=== PATIENT | female | born 1985 | race Caucasian/White ===

== ENCOUNTER → 2018-08-11 17:27 | Outpatient (CLI) | payer MEDICARE, MEDICAID, SELFPAY ==
[2018-08-11 18:33] LABS: Basophils % 0.2 % (0.1-2.0); Eosinophils % 0.2 % (0.1-12.0); Hematocrit 39.6 % (37.0-47.0); Hemoglobin 13.4 g/dL (12.2-16.2); Lymphocytes # 2.6 K/mm3 (0.7-4.5); Mean Corpuscular HGB Conc 33.8 g/dL (31.8-35.4); Mean Corpuscular Hemoglobin 31.1 pg (27.0-31.2); Mean Corpuscular Volume 91.8 fl (81-99); Mean Platelet Volume 7.8 fl (7.4-10.4); Monocytes # 0.3 K/mm3 (0.1-1.0); Neutrophils # 7.2 K/mm3 (1.8-7.8); Neutrophils % 70.7 % (37.0-80.0); Platelet Count 288 K/mm3 (142-424); Red Blood Count 4.31 M/mm3 (4.20-5.40); Red Cell Distribution Width 13.3 % (11.5-17.5); White Blood Count 10.1 K/mm3 (4.8-10.8)
[2018-08-11 19:39] LABS: Alanine Aminotransferase 35 U/L (12-78); Albumin Level 4.5 gm/dL (3.4-5.0); Albumin/Globulin Ratio 1.2 (1.1-1.8); Alkaline Phosphatase 87 U/L (46-116); Anion Gap 16.6 mEq/L (5-15); Aspartate Amino Transferase 17 U/L (15-37); Bilirubin,Total 0.5 mg/dL (0.2-1.0); Blood Urea Nitrogen 14 mg/dL (7-18); Carbon Dioxide 26 mmol/L (21.0-32.0); Chloride 102 mmol/L (98-107); Creatinine,Serum 0.72 mg/dL (0.55-1.02); Estimated Glomerular Filt Rate 93 ml/min (>60); GFR (African American) 113 ML/MIN (>60); Globulin 3.9 gm/dl (1.3-3.2); Glucose 88 mg/dL (74-106); Potassium 3.6 mmoL/L (3.5-5.1); Sodium 141 mmol/L (136-145); Thyroid Stimulating Hormone 2.61 uIU/ml (0.358-3.740); Total Protein,Serum 8.4 gm/dL (6.4-8.2)
[2018-08-13 10:21] LABS: Hep A Ab, IgM Negative (Negative); Hepatitis B Core Antibody IgM Negative (Negative); Hepatitis B Surface Antigen Negative (Negative)
[2018-08-13 12:27] LABS: Hepatitis C Antibody >11.0 s/co ratio (0.0-0.9)
[2018-08-14 00:07] LABS: PTT-LA 41.2 sec (0.0-51.9); dRVVT 38.7 sec (0.0-47.0)
[2018-08-17 09:49] LABS: Lupus Reflex Interpretation Comment: (.)
== END ==
PROVIDERS: PCP Internal Medicine Adolescent Medicine; Visit Provider Nurse Practitioner Family
DX: I10 Essential (primary) hypertension (principal); K74.60 Unspecified cirrhosis of liver; B18.2 Chronic viral hepatitis C; R42 Dizziness and giddiness; R00.2 Palpitations; Z95.2 Presence of prosthetic heart valve
CPT/HCPCS: 36415; 80053; 80074; 84443; 85025; 85613; 93225; 93226

== ENCOUNTER → 2018-08-18 13:30 | Outpatient (CLI) | payer MEDICARE, MEDICAID, SELFPAY | PROVIDERS: PCP Internal Medicine Adolescent Medicine; Visit Provider Nurse Practitioner Family | DX: R00.2 Palpitations (principal); R42 Dizziness and giddiness; Q21.1 Atrial septal defect | CPT/HCPCS: 93306 ==

== ENCOUNTER → 2018-08-19 16:12 | Outpatient (CLI) | payer MEDICARE, MEDICAID, SELFPAY ==
--- NOTE | 2018-08-19 16:24 | XR_ITS ---
XR skull <4V, XR chest AP, XR KUB, XR pelvis 1-2V, XR cervical spine 2V CLINICAL INDICATION: Evaluate shunt status ITS.REASON: SYNCOPE,BANQUET SET UP PERSON SHUNT STATUS ORDERING PHYSICIAN: Elisabeth Staples PATIENT AGE: 33 years Comparison: None FINDINGS: AP and lateral skull: A BANQUET SET UP PERSON shunt is present. The proximal portion of this shunt is to the right of midline extending from the occipital region to the parietal area. There is a small portion with a shunt radiolucent proximally having a similar appearance on a previous head CT of 11/23/2013 AP lateral views of the cervical spine shows shunt tube traversing the right side of the neck. The shunt appears intact the neck and upper chest. There is a second nonfunctioning shunt which is discontinuous in the upper chest and in the neck. AP chest:: Shunt traverses the right hemithorax and appears intact. KUB: The shunt traverses the right hemithorax and extends into the lower abdomen then ascending on the left and then back down toward the center aspect of the abdomen. The shunt does appear intact. The nonfunctioning portion of the shunt deviates medially along the paraspinal region and then laterally. AP view of the pelvis shows the tip of the shunt at the L5-S1 region centrally. IMPRESSION: The right ventriculoperitoneal shunt appears intact traversing the right neck, right chest, and into the abdomen with the tip overlying the L5-S1 region. A second nonfunctioning shunt is also present as described above.
--- NOTE | 2018-08-19 16:24 | XR_ITS ---
XR skull <4V, XR chest AP, XR KUB, XR pelvis 1-2V, XR cervical spine 2V CLINICAL INDICATION: Evaluate shunt status ITS.REASON: SYNCOPE,PAN SHAKER SHUNT STATUS ORDERING PHYSICIAN: Elisabeth Staples PATIENT AGE: 33 years Comparison: None FINDINGS: AP and lateral skull: A PAN SHAKER shunt is present. The proximal portion of this shunt is to the right of midline extending from the occipital region to the parietal area. There is a small portion with a shunt radiolucent proximally having a similar appearance on a previous head CT of 11/23/2013 AP lateral views of the cervical spine shows shunt tube traversing the right side of the neck. The shunt appears intact the neck and upper chest. There is a second nonfunctioning shunt which is discontinuous in the upper chest and in the neck. AP chest:: Shunt traverses the right hemithorax and appears intact. KUB: The shunt traverses the right hemithorax and extends into the lower abdomen then ascending on the left and then back down toward the center aspect of the abdomen. The shunt does appear intact. The nonfunctioning portion of the shunt deviates medially along the paraspinal region and then laterally. AP view of the pelvis shows the tip of the shunt at the L5-S1 region centrally. IMPRESSION: The right ventriculoperitoneal shunt appears intact traversing the right neck, right chest, and into the abdomen with the tip overlying the L5-S1 region. A second nonfunctioning shunt is also present as described above.
--- NOTE | 2018-08-19 16:24 | XR_ITS ---
XR skull <4V, XR chest AP, XR KUB, XR pelvis 1-2V, XR cervical spine 2V CLINICAL INDICATION: Evaluate shunt status ITS.REASON: SYNCOPE,PARK SUPERINTENDENT SHUNT STATUS ORDERING PHYSICIAN: Elisabeth Staples PATIENT AGE: 33 years Comparison: None FINDINGS: AP and lateral skull: A PARK SUPERINTENDENT shunt is present. The proximal portion of this shunt is to the right of midline extending from the occipital region to the parietal area. There is a small portion with a shunt radiolucent proximally having a similar appearance on a previous head CT of 11/23/2013 AP lateral views of the cervical spine shows shunt tube traversing the right side of the neck. The shunt appears intact the neck and upper chest. There is a second nonfunctioning shunt which is discontinuous in the upper chest and in the neck. AP chest:: Shunt traverses the right hemithorax and appears intact. KUB: The shunt traverses the right hemithorax and extends into the lower abdomen then ascending on the left and then back down toward the center aspect of the abdomen. The shunt does appear intact. The nonfunctioning portion of the shunt deviates medially along the paraspinal region and then laterally. AP view of the pelvis shows the tip of the shunt at the L5-S1 region centrally. IMPRESSION: The right ventriculoperitoneal shunt appears intact traversing the right neck, right chest, and into the abdomen with the tip overlying the L5-S1 region. A second nonfunctioning shunt is also present as described above.
--- NOTE | 2018-08-19 16:24 | XR_ITS ---
XR skull <4V, XR chest AP, XR KUB, XR pelvis 1-2V, XR cervical spine 2V CLINICAL INDICATION: Evaluate shunt status ITS.REASON: SYNCOPE,INFORMATION TECHNOLOGY CONSULTANT SHUNT STATUS ORDERING PHYSICIAN: Elisabeth Staples PATIENT AGE: 33 years Comparison: None FINDINGS: AP and lateral skull: A INFORMATION TECHNOLOGY CONSULTANT shunt is present. The proximal portion of this shunt is to the right of midline extending from the occipital region to the parietal area. There is a small portion with a shunt radiolucent proximally having a similar appearance on a previous head CT of 11/23/2013 AP lateral views of the cervical spine shows shunt tube traversing the right side of the neck. The shunt appears intact the neck and upper chest. There is a second nonfunctioning shunt which is discontinuous in the upper chest and in the neck. AP chest:: Shunt traverses the right hemithorax and appears intact. KUB: The shunt traverses the right hemithorax and extends into the lower abdomen then ascending on the left and then back down toward the center aspect of the abdomen. The shunt does appear intact. The nonfunctioning portion of the shunt deviates medially along the paraspinal region and then laterally. AP view of the pelvis shows the tip of the shunt at the L5-S1 region centrally. IMPRESSION: The right ventriculoperitoneal shunt appears intact traversing the right neck, right chest, and into the abdomen with the tip overlying the L5-S1 region. A second nonfunctioning shunt is also present as described above.
--- NOTE | 2018-08-19 16:24 | XR_ITS ---
XR skull <4V, XR chest AP, XR KUB, XR pelvis 1-2V, XR cervical spine 2V CLINICAL INDICATION: Evaluate shunt status ITS.REASON: SYNCOPE,MILL STENCILER SHUNT STATUS ORDERING PHYSICIAN: Elisabeth Staples PATIENT AGE: 33 years Comparison: None FINDINGS: AP and lateral skull: A MILL STENCILER shunt is present. The proximal portion of this shunt is to the right of midline extending from the occipital region to the parietal area. There is a small portion with a shunt radiolucent proximally having a similar appearance on a previous head CT of 11/23/2013 AP lateral views of the cervical spine shows shunt tube traversing the right side of the neck. The shunt appears intact the neck and upper chest. There is a second nonfunctioning shunt which is discontinuous in the upper chest and in the neck. AP chest:: Shunt traverses the right hemithorax and appears intact. KUB: The shunt traverses the right hemithorax and extends into the lower abdomen then ascending on the left and then back down toward the center aspect of the abdomen. The shunt does appear intact. The nonfunctioning portion of the shunt deviates medially along the paraspinal region and then laterally. AP view of the pelvis shows the tip of the shunt at the L5-S1 region centrally. IMPRESSION: The right ventriculoperitoneal shunt appears intact traversing the right neck, right chest, and into the abdomen with the tip overlying the L5-S1 region. A second nonfunctioning shunt is also present as described above.
[2018-08-19 17:36] LABS: D-Dimer < 100 ng/mL (0-400)
== END ==
PROVIDERS: PCP Nurse Practitioner Family; Visit Provider Nurse Practitioner Family
DX: R55 Syncope and collapse (principal); Z98.2 Presence of cerebrospinal fluid drainage device
CPT/HCPCS: 36415; 70250; 71045; 72040; 72170; 74018; 85378